=== PATIENT | male | born 1985 | race Caucasian/White ===

== ENCOUNTER 2021-07-31 03:26 | Emergency (ER) | payer SELFPAY ==
[~2021-07-31] VITALS: Ht 170.2 cm; Wt 87.0 kg
[2021-07-31 03:55] LABS: BASOPHILS % 0.7 % (0.0-2.0); EOSINOPHILS % 2.6 % (0.0-5.0); HEMOGLOBIN. 14.4 g/dL (14.0-18.0); LYMPHOCYTES % 14.9 % (20.0-50.0); MEAN CORPUSCULAR HEMOGLOBIN 29.2 pg (28.0-32.0); MEAN PLATELET VOLUME 7.7 fl (7.4-10.4); MONOCYTES % 6.1 % (2.0-8.0); NEUTROPHILS % 75.7 % (40.0-76.0); PLATELET 294 x1000/uL (130-400); RED BLOOD CELL COUNT 4.93 mill/uL (4.7-6.1)
[2021-07-31 04:44] LABS: CHLORIDE 105 mEq/L (98-107)
[2021-07-31] MEDS ORDERED: ONDANSETRON 4MG ODT PO NR (05:30)
[2021-07-31] MEDS ORDERED: VISCOUS LIDOCAINE 2% 15 ML UDC PO NR (05:30)
[2021-07-31] MEDS ORDERED: MAGNESIUM/ALUMINUM HYDROXIDE/SIMETHICONE 30ML UDC PO NR (05:30)
[2021-07-31] MEDS ORDERED: FAMO40TA70 MT (06:15)
[2021-07-31 06:22] VITALS: BP 106/80
[2021-07-31] MEDS ORDERED: POTASSIUM CHLORIDE 10MEQ TABLET SR PO NR (06:30)
== END 2021-07-31 06:22 | disposition home or self-care (01) ==
LOC: ER 03:36
DX: R10.13 Epigastric pain (principal)
CPT/HCPCS: 36415; 71045; 80053; 83690; 83880; 84484; 85025; 93005; 99285; Q0162